=== PATIENT | female | born 1995 | race Caucasian/White ===

== ENCOUNTER 2019-03-23 22:07 | Emergency (ER) | payer BC ==
[~2019-03-23] VITALS: Ht 160 cm; Wt 106.6 kg
--- OUTSIDE RECORDS SUMMARY | 2019-03-23 22:10 | XMS REPORT | Continuity of Care Document ---
Author Author [facility] Interface Address Unknown Phone Unavailable Problems Problem Status Onset Date Classification Date Reported Comments Source Sore throat symptom 08/09/2018 Diagnosis 08/09/2018 [facility] Cough 08/09/2018 Diagnosis 08/09/2018 [facility] Viral upper respiratory tract infection 08/09/2018 Diagnosis 08/09/2018 [facility] Body mass index 40+ - severely obese 08/09/2018 Diagnosis 08/09/2018 [facility] Nasal congestion 05/22/2018 Diagnosis 05/22/2018 [facility] Streptococcal sore throat 05/22/2018 Diagnosis 05/22/2018 [facility] Medications Medication Details Route Status Patient Instructions Ordering Provider Order Date Source Amoxicillin 875 MG Oral Tablet amoxicillin 875 mg tablet Take 1 tablet every 12 hours by oral route as directed for 10 days. Active [facility] benzonatate 100 MG Oral Capsule [Tessalon Perles] Tessalon Perles 100 mg capsule Take 2 capsules 3 times a day by oral route as directed for 10 days. Active [facility] Allergies, Adverse Reactions, Alerts Substance Category Reaction Severity Reaction type Status Date Reported Comments Source Immunizations Immunization Date Given Site Status Last Updated Comments Source Results Order Name Results Value Reference Range Date Interpretation Comments Source RESULT negative 08/09/2018 [facility] SWAB LOCATION Left and Right tonsillar pillars 08/09/2018 [facility] RESULT positive 05/22/2018 [facility] SWAB LOCATION Left and Right tonsillar pillars 05/22/2018 [facility] Vital Signs Vital Sign Value Date Comments Source Diastolic (mm Hg) 70 08/09/2018 [facility] Height 63 08/09/2018 [facility] Systolic (mm Hg) 100 08/09/2018 [facility] Weight 235 08/09/2018 [facility] Diastolic (mm Hg) 70 05/22/2018 [facility] Height 63 05/22/2018 [facility] Systolic (mm Hg) 110 05/22/2018 [facility] Weight 230 05/22/2018 [facility] Encounters Location Location Details Encounter Type Encounter Number Reason For Visit Attending Provider ADM Date DC Date Status Source [place] - [facility] - [id number] Renata Crandalljames, [employer] REPRESENTATIVE-C: [address] [place] [address], Ph. [id number] Renata Crandalljames 05/22/2018 [facility] [place] [id number] Julianne Grimm PA-C: [address] [place] [address], Ph. [id number] Julianne Grimm 08/09/2018 [facility] Procedures Procedure Code Date Perfomer Comments Source
--- OUTSIDE RECORDS SUMMARY | 2019-03-23 22:10 | XMS REPORT | Encounter Summary ---
Author Organization Unknown Address [address] [place] [address] Phone [phone] Reason for Visit Medical Complaint Instructions 1. Streptococcal sore throat strep throat: care instructions amoxicillin 875 mg tablet rapid strep group A, throat 2. Body mass index 40+ - severely obese 3. Nasal congestion saline nasal washes: care instructions Discussion Note Pt. is NAD. Take medications as prescribed; f/u with PCP within 2-3 days should symptoms worsen as discussed. ER precautions and Care instructions given. Verbalized all instructions. No further questions upon d/c. Plan of Care Patient Instructions Give your child antibiotics as directed. Do not stop using them just because your child feels better. Your child needs to take the full course of antibiotics. Keep your child at home and away from other people for 24 hours after starting the antibiotics. Wash your hands and your child's hands often. Keep drinking glasses and eating utensils separate, and wash these items well in hot, soapy water. Give your child acetaminophen (Tylenol) or ibuprofen (Advil, Motrin) for fever or pain. Be safe with medicines. Read and follow all instructions on the label. Do not give aspirin to anyone younger than 20. It has been linked to Melida syndrome, a serious illness. Do not give your child two or more pain medicines at the same time unless the doctor told you to. Many pain medicines have acetaminophen, which is Tylenol. Too much acetaminophen (Tylenol) can be harmful. Have your child drink lots of water and other clear liquids. Frozen ice treats, ice cream, and sherbet also can make his or her throat feel better. Soft foods, such as scrambled eggs and gelatin dessert, may be easier for your child to eat. Make sure your child gets lots of rest. Keep your child away from smoke. Smoke irritates the throat. Place a humidifier by your child's bed or close to your child. Follow the directions for cleaning the machine. Reminders Provider Appointments None recorded. Lab Rapid Strep Group a, Throat 05/22/2018 [facility] Referral None recorded. Procedures None recorded. Surgeries None recorded. Imaging None recorded. Medications Name Start Date amoxicillin 875 mg tablet Take 1 tablet every 12 hours by oral route as directed for 10 days. Medications Administered None recorded. Vitals Height Weight BMI Blood Pressure 5 ft 3 in 230 lbs 40.7 kg/m2 110/70 mm[Hg] Lab Results Date Name Specimen Result Interpretation Description Value Range Status Address Rapid Strep Group a, Throat Result positive [facility]: [address] [place] [address] Swab Location Left and Right tonsillar pillars [facility]: [address] [place] [address] Allergies Code Code System Name Reaction Severity Status Onset NKDA Problems None recorded. Procedures None recorded. Vaccine List None recorded. Social History Smoking Status Never Smoker Past Encounters 05/22/2018 Streptococcal Sore Throat; Body Mass Index 40+ - Severely Obese; Nasal Congestion Renata Hernandez [employer] SOCIOLOGIST-C: [address] [place] [address], Ph. History of Present Illness Throat-Oral Complaint Reported By: Patient HPI: Location: throat. Quality: sore throat, congested. Severity: moderate. Duration: 1 days. Onset/Timing: sudden. Context: no foreign travel, non-smoker, sick contact. Modifying factors: OTC medication. Associated Symptoms: no headache, no body aches, no sputum production, no shortness of breath, no wheezing, no change in number of pillows needed to sleep at night, no sweats, no significant weight gain, no significant weight loss, no morning cough, no vomiting, no diarrhea, no rash, no nausea, fever, sore throat; drainage and congestion Notes: No other symptoms reported. Review of Systems:ROS as noted in the HPI Review of Systems Basic Reported By: Patient Physical Exam Adult Basic, Adult Female Complete Reported By: Patient Constitutional: General Appearance: healthy-appearing, morbidly obese. Level of Distress: NAD. Ambulation: ambulating normally Psychiatric: Mental Status: active and alert. Orientation: to time, to place, to person Hlt-Bmtq-Vdqsm-Throat: Ears: no lesions on external ear, no outer ear tenderness, EACs clear, TMs clear. Hearing: no hearing loss. Nose: no lesions on external nose, nares patent, no septal deviation, nasal passages clear, no sinus tenderness, no nasal discharge. Lips, Teeth, and Gums: no mouth or lip ulcers, no bleeding gums, normal dentition. Oropharynx: moist mucous membranes, no exudates, tonsils not enlarged, erythema Neck: Neck: supple, trachea midline, no masses, FROM. Lymph Nodes: no supraclavicular LAD, anterior cervical LAD Lungs: Respiratory effort: no dyspnea, no tachypnea, no use of accessory muscles, no intercostal retractions. Auscultation: breath sounds normal Cardiovascular: Heart Auscultation: RRR, no murmurs Skin: Inspection and palpation: no rash, no lesions, no ulcer, no abnormal nevi, no induration, no nodules, good turgor, no jaundice; on visible skin
--- OUTSIDE RECORDS SUMMARY | 2019-03-23 22:10 | XMS REPORT | Encounter Summary ---
Author Organization Unknown Address [address] [place] [address] Phone [phone] Care Team Providers Care Director Of Donor Relations Name Role Phone [facility] 3 [phone] Reason for Visit Medical Complaint Instructions 1. Viral upper respiratory tract infection 2. Cough Tessalon Perles 100 mg capsule 3. Sore throat symptom rapid strep group A, throat sore throat: care instructions 4. Body mass index 40+ - severely obese learning about healthy weight Discussion Note explained to patient regarding viral vs bacterial infection. Encouraged adequate hydration and fluids. Discussed hand hygiene and CDC guidelines for viral infections. If new, worsening or persistance of symptoms follow up with PCP. If SOB, wheezing, fever, difficulty swallowing or abdominal pain go to ED. Pt verbalizes understanding and agrees with plan of care. May alternate Motrin and Tylenol for fever, pain or discomfort as needed per label instructions. Plan of Care Reminders Provider Appointments None recorded. Lab Rapid Strep Group a, Throat 08/09/2018 [facility] Referral None recorded. Procedures None recorded. Surgeries None recorded. Imaging None recorded. Medications Name Start Date Tessalon Perles 100 mg capsule Take 2 capsules 3 times a day by oral route as directed for 10 days. Medications Administered None recorded. Vitals Height Weight BMI Blood Pressure 5 ft 3 in 235 lbs 41.6 kg/m2 100/70 mm[Hg] Lab Results Date Name Specimen Result Interpretation Description Value Range Status Address Rapid Strep Group a, Throat Result negative [facility]: [address] [place] [address] Swab Location Left and Right tonsillar pillars [facility]: [address] [place] [address] Allergies Code Code System Name Reaction Severity Status Onset NKDA Problems No Known Problems Procedures None recorded. Vaccine List None recorded. Social History Smoking Status Never Smoker Past Encounters 08/09/2018 Viral Upper Respiratory Tract Infection; Cough; Sore Throat Symptom; Body Mass Index 40+ - Severely Obese Julianne Grimm PA-C: [address] [place] [address], Ph. History of Present Illness Cough Reported By: Patient HPI: Location: nasal/sinus. Quality: productive cough, colored phlegm, congested. Duration: 4 days. Severity: moderate. Onset/Timing: sudden. Context: no sick contacts, no foreign travel, non-smoker. Modifying factors: OTC medication. Associated Symptoms: no shortness of breath, no wheezing, no sweats, no significant weight gain, no significant weight loss, no morning cough, no vomiting, no diarrhea, no rash, no nausea, no fever/chills, no muscle aches, yellow sputum, sore throat, headache Review of Systems Basic Reported By: Patient Constitutional: Constitutional: no fever Eyes: Eyes: no eye complaints Lozn-Mwbu-Qqtsj-Throat: Ears: ear pain. Nose: nose/sinus problems. Mouth/Throat: no bleeding gums, no mouth complaints, no teeth problems, sore throat Cardiovascular: Cardiovascular: no chest pain, no shortness of breath, no known heart murmur Respiratory: Respiratory: no wheezing, no shortness of breath, cough Gastrointestinal: Gastrointestinal: no abdominal pain, no vomiting / diarrhea Genitourinary: Genitourinary: no urinary complaints, no discharge Musculoskeletal: Musculoskeletal: no muscle aches, no muscle weakness, no arthralgias/joint pain, no back pain Skin: Skin: no abnormal / changing mole, no jaundice, no rashes Neurologic: Neurologic: no loss of consciousness, no weakness, no numbness, no seizures, no dizziness, no headaches, headache Physical Exam Adult Basic Reported By: Patient Constitutional: General Appearance: obese. Level of Distress: NAD. Ambulation: ambulating normally Psychiatric: Mental Status: active and alert. Orientation: to time, to place, to person Eyes: Lids and Conjunctivae: non-injected, no discharge, no pallor. Pupils: PERRLA. EOM: EOMI. Sclerae: non-icteric. Vision: acuity grossly intact Dqn-Kqlp-Ciemv-Throat: Ears: no lesions on external ear, no outer ear tenderness, EACs clear, TMs clear, middle ear fluid. Hearing: no hearing loss. Nose: no lesions on external nose, nares patent, no septal deviation, nasal passages clear, no sinus tenderness, post nasal drip. Lips, Teeth, and Gums: no mouth or lip ulcers, no bleeding gums, normal dentition. Oropharynx: moist mucous membranes, no erythema, no exudates, tonsils not enlarged; cobblestoning Neck: Neck: supple, trachea midline, no masses, FROM. Lymph Nodes: no cervical LAD, no supraclavicular LAD Lungs: Respiratory effort: no dyspnea, no tachypnea, no use of accessory muscles, no intercostal retractions. Auscultation: breath sounds normal Cardiovascular: Heart Auscultation: RRR, no murmurs
[2019-03-23] MEDS ORDERED: SODIUM CHLORIDE 0.9% 1000ML 1,000 ML IV STA (22:29)
--- NOTE | 2019-03-23 22:30 | NUR ---
TRANSFER TO [facility] TO PTS CONSULTING PSYCHOLOGIST
[2019-03-23] MEDS ORDERED: SODIUM CHLORIDE 0.9% 1000ML 1,000 ML ONE (22:35)
[2019-03-23 22:59] LABS: BASOPHILS % 0.1 % (0.0-1.0); HEMATOCRIT 35.7 % (34.2-44.1); HEMOGLOBIN 11.6 g/dL (12.0-16.0); LYMPHOCYTES # (AUTO) 0.5 (1.0-3.2); LYMPHOCYTES % 3.8 % (18.0-39.1); MEAN CORPUSCULAR HGB CONC 32.5 g/dL (31-35); MEAN CORPUSCULAR VOLUME 86.2 fL (81-99); MONOCYTES # (AUTO) 0.3 (0.2-0.8); MONOCYTES % 2.5 % (4.4-11.3); NEUTROPHILS # (AUTO) 12.5 (2.1-6.9); NEUTROPHILS % 92.9 % (38.7-80.0); PLATELET COUNT 295 x10e3/uL (140-360); RED BLOOD COUNT 4.14 x10e6/uL (3.6-5.1); RED CELL DISTRIBUTION WIDTH 13.7 % (11.7-14.4)
[2019-03-23 23:21] LABS: ALANINE AMINOTRANSFERASE 25 IU/L (0-55); ALBUMIN/GLOBULIN RATIO 0.7 (0.8-2.0); ALKALINE PHOSPHATASE 72 IU/L (40-150); ANION GAP 15.6 mmol/L (8-16); BLOOD UREA NITROGEN 7 mg/dL (7-26); BUN/CREATININE RATIO 11 (6-25); CALCIUM 9.1 mg/dL (8.4-10.2); CARBON DIOXIDE 21 mmol/L (22-29); CHLORIDE 103 mmol/L (98-107); CREATININE, SERUM 0.63 mg/dL (0.57-1.11); EST GLOMERULAR FILTRATION RATE > 60 ML/MIN (60-); GLUCOSE 104 mg/dL (74-118); POTASSIUM 3.6 mmol/L (3.5-5.1); SODIUM 136 mmol/L (136-145)
--- NOTE | 2019-03-23 23:25 | NUR ---
BOLUS INFUSED. SL IV. PT TO RESTROOM TO VOID FOR SPECIMEN
[2019-03-23 23:40] LABS: BILIRUBIN,URINE SMALL (NEGATIVE); CLARITY,URINE SL CLOUDY (CLEAR); COLOR,URINE YELLOW (YELLOW); LEUKOCYTE ESTERASE ,URINE NEGATIVE (NEGATIVE); NITRITE,URINE NEGATIVE (NEGATIVE); PROTEIN,URINE DIPSTICK TRACE (NEGATIVE); URINE UROBILINOGEN 0.2 mg/dL (0.2 - 1)
[2019-03-23 23:42] LABS: KETONES,URINE 3+ (NEGATIVE)
--- NOTE | 2019-03-24 00:02 | NUR ---
REPORT GIVEN TO [facility]. PT AWAKE ALERT SKIN W/D RESP NONLAB, NAD NOTED.
[2019-03-24 00:12] LABS: BACTERIA,URINE FEW /HPF; EPITHELIAL CELLS,URINE FEW /LPF; MUCUS,URINE MANY (RARE); RBC,URINE 0-5 /HPF (0-5)
== END 2019-03-24 00:14 | disposition other institution (70) ==
LOC: ER 22:07
DX: O26.92 Pregnancy related conditions, unspecified, second trimester (principal); R11.2 Nausea with vomiting, unspecified; R10.11 Right upper quadrant pain; R10.84 Generalized abdominal pain
CPT/HCPCS: 36415; 80053; 81001; 85025; 99284; J7030